=== PATIENT | female | born 1965 | race Caucasian/White ===

== ENCOUNTER → 2017-10-21 10:36 | Outpatient (CLI) | payer OTHER, SELFPAY ==
--- NOTE | 2017-10-21 10:39 | RAD_ITS ---
STUDY: X-RAY - LUMBAR SPINE REASON FOR EXAM: Female, 52 years old. Lower back pain. TECHNIQUE: 2 view(s) of the lumbar spine were obtained. COMPARISON: None FINDINGS: There is fusion from L4 through the sacroiliac joints. The pedicle screws and stabilization rods are intact. There is an exaggerated lumbar lordosis. There is no substantial scoliosis. There is a normal alignment of the vertebrae. Normal vertebral bodies and endplates. Normal disc space heights. There is no evidence of acute fracture or loss of vertebral axial height. The soft tissue structures are unremarkable. RAD/Lumbar Spine 2 or 3 Views IMPRESSION: Fusion of the lower lumbar spine and sacroiliac joints. Electronically Signed: Matty Leahy DO at 21:26 EDT Tel [phone], Service support ,
== END ==
PROVIDERS: Visit Provider Orthopaedic Surgery
DX: M54.5 Low back pain (principal)
CPT/HCPCS: 72100

== ENCOUNTER → 2017-11-27 12:19 | Outpatient (CLI) | payer OTHER, SELFPAY ==
--- NOTE | 2017-11-27 12:22 | MRI_ITS ---
STUDY: MRI LUMBAR SPINE WITH AND WITHOUT CONTRAST REASON FOR EXAM: Female, 52 years old. BACK PAIN, C/O NUMBNESS AND TINGLING BILATERAL LEGS/FEET X 1 YR TECHNIQUE: Standardized fat and water weighted pulse sequences were obtained in the sagittal and axial planes. 8 ml of Gadavist contrast material was administered for the contrast portion of the examination. COMPARISON: X-ray October 21, 2017 FINDINGS: Again seen is posterior fusion of L3, L4 and the sacrum. Susceptibility artifact from hardware limits evaluation. There is stable exaggerated lumbar lordosis. There is a dextroscoliosis of the lumbar spine. Normal conus medullaris that terminates at the T11-12 level. There is stable significant anterolisthesis at L5-S1. There is stable severe loss of disc height at L5-S1. There is stable chronic deformity of the L5 inferior endplate. Bone marrow signal appears normal. T12/L1: Normal. L1/2: Normal. L2/3: There is mild facet and ligamentum flavum hypertrophy. Normal disc. No central canal or neuroforaminal stenosis. L3/4: There is mild facet and ligamentum flavum hypertrophy. Normal disc. No central canal or neuroforaminal stenosis. L4/5: There is mild facet and ligamentum flavum hypertrophy. Normal disc. No central canal stenosis. There is mild bilateral neuroforaminal stenosis. L5/S1: There is no disc bulge or herniation or central canal stenosis. There is moderate to severe right and moderate left neuroforaminal stenosis. Normal visualized sacral ala. There are postoperative changes of the soft tissues of the back. MRI/Spine Lumbar W/WO Contrast IMPRESSION: There is a new dextro scoliosis. L5/S1: There is moderate to severe right and moderate left neuroforaminal stenosis. L4/5: There is mild facet and ligamentum flavum hypertrophy. There is mild bilateral neuroforaminal stenosis. Other stable findings. Electronically Signed: Keerthi Bills MD at 15:03 EDT , Service support ,
[2017-11-27 12:36] VITALS: BP 105/79; PULSE 96; RESP 14; TEMP 36.9; O2SAT 96; BMI 28.3
[2017-11-27] MEDS: Midazolam 2 MG/2 ML Syringe IV ×2 (13:26→13:43)
--- NOTE | 2017-11-27 15:11 | NURSING ---
1320 PT TO MRI VIA WC. 1326 2 MG VERSED IVP GIVEN BY THIS RN. PT PLACED ON SP02 MONITOR. AT BEDSIDE. 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 1343 PT AMBULATED TO MRI TABLE. VERY ANXIOUS AND TACHYPNEIC, RESP 24. PT MEDICATED WITH ANOTHER 2 MG VERSED IVP. STAFF CONTINUES TO PROVIDE EMOTIONAL SUPPORT. 1406 PT'S BROUGHT INTO MRI ROOM TO STAND WITH PT DURING SCAN. 94% RA. 1415 100% RA 1433 CONTRAST GIVEN BY KRYSTAL MONTANO. EMOTIONAL SUPPORT PROVIDED. DENIES NEEDS. PT TOLERATING BUT TEARFUL. 1442 PT AMBULATED TO DRESSING ROOM. REFUSED WC LEAVING. D/C WITH .
== END ==
PROVIDERS: Visit Provider Orthopaedic Surgery
DX: M54.16 Radiculopathy, lumbar region (principal)
CPT/HCPCS: 72158; A9585; A4216

== ENCOUNTER 2018-02-12 15:00 | Outpatient (RCR) | payer OTHER, SELFPAY ==
--- NOTE | 2018-02-19 09:50 | HP.FCE ---
HP OT Functional Capacity Eval - Task Lift Floor (Occasional 1-33% of Day): 12lb Floor (Frequent 34-66% of Day): 6lb Negligible Floor (Constant 67-100% of Day): Negligible Floor PDL: Sedentary Knee (Occasional 1-33% of Day): 12lb Knee (Frequent 34-66% of Day): 6lb Negligible Knee (Constant 67-100% of Day): Negligible Knee PDL: Sedentary Waist (Occasional 1-33% of Day): 12lb Waist (Frequent 34-66% of Day): 6lb Negligible Waist (Constant 67-100% of Day): Negligible Waist PDL: Sedentary Shoulder (Occasional 1-33% of Day): 12lb Shoulder (Frequent 34-66% of Day): 6lb Negligible Shoulder (Constant 67-100% of Day): Negligible Shoulder PDL: Sedentary Overhead (Occasional 1-33% of Day): 12lb Overhead (Frequent 34-66% of Day): 6lb Negligible Overhead (Constant 67-100% of Day): Negligible Overhead PDL: Sedentary - Work Activity/Posture Bending: No Ablility (0% of day) Squatting: Occasional Ability (1-33% of day) Kneeling: Occasional Ability (1-33% of day) Comments: Unable to lead a kneel with L leg Reaching out: Frequent Ability (34-66% of day) Reaching up: Frequent Ability (34-66% of day) Sitting: Frequent Ability (34-66% of day) Walking: Occasional Ability (1-33% of day) Standing: Occasional Ability (1-33% of day) - Reference Duration Sedentary Sedentary Light Light Light Medium Medium Medium Heavy Very Heavy Heavy Occasional (0-33% of day) Frequent (34-66% of day) Constant (67-100% of day) 10 # Negligible Negligible 15 # 8 # Negligible 20 # 10# Negli. 35 # 18 # 7 # 50 # 25 # 10 # 75 # 100 # >100 # 38 # 50 # >50 # 15 # 20 # >20 # - Patient Information Height: 5 ft 3 in Weight:: 72.575 kg Hand Dominance: Right Handed - Medical History Medical History Including Restrictions: Pt reports; tubal ligation, complete hysterectomy, L ear sx, L breast sx, 3 sx to remove colon and rectum, bunion sx L foot, cyst removed large toe R foot, lumbar back sx, urologist for incontinence. - Diagnoses Diagnoses: Pt reports; tubal ligation, complete hysterectomy, L ear sx, L breast sx, 3 sx to remove colon and rectum, bunion sx L foot, cyst removed large toe R foot, lumbar back sx, urologist for incontinence. - Symptoms Symptoms: Pt states lower back pain feels like its going to explode, increased back pain hard to sleep at night, pain mngmt 2 injections into back, pt feels back pain in worse now from injections. 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 - ADLS ADLS: Pt resides in 2 story house, 5 steps to enter 1 handrail. Lives with spouse. AMB no device, pt states has lost balance occassionally. Independent with basic self care tasks. Independent with IADLs. Bedroom is on 2nd floor, laundry main level. 16 steps to 2nd floor with no handrail. Pt drives. Grocery shops and can carry smaller items, can't carry cases of water or heavy objects, has assist with the heavy objects, pushes cart in grocery store. - Physical Examination ROM: BUE WFL. BLE WFL Strength: BUE 4-/5. R LE 3+/5. L LE 3+/5 Right Superintendent Measurement Strength Average: 53.33 Left Superintendent Measurement Strength Average: 38.33 Right Lateral Pinch Average: 4.66 Left Lateral Pinch Average: 10.66 Right Tripod Pinch Average: 6.00 Left Tripod Pinch Average: 10.00 Sensation: Numbness pelvic area, burning of R toes with will go up leg if touched. Fine Motor: Pt reports if cutting a lot of food with utensils hands will cramp up but otherwise no difficulty with fine motor skills such as writing or manipulation of fasteners. Balance: Pt reports has had a fall getting out of tub, loses balance frequently while walking but no real falls other than getting out of the tub. - Non Material Handling Activities Bending: Pt stated unable to complete bending down to floor. Unable to complete task. Squatting: Pt completed 10 squats slow pace using R hand supported on desk, 6 rapid squats, unable to complete 10 secondary to pain and stinging feeling in R foot. Kneeling: Pt able to complete 10 slow kneels leading with R leg only, unable to lead kneels and complete kneeling position with L leg in front using bilateral arm support on desk and chair for all kneels. Reaching out/up: Pt able to reach out and up 10 times without loss of balance, pt able to complete reaching out and up 10 times each rapid pace with no loss of balance. Walking: Pt able to complete 15 minute walk test without rest break needed. Standing: Pt able to tolerate standing between some physical activities 3 to 5 minutes. Did not have to sit during walk test. Pt able to stand after completing stairs and walk back to therapist desk. Sitting: Pt sat for beginning of evaluation for 20 minutes without having to get up and move around. Climbing Stairs: Pt able to climb flight of 10 steps up and down using 1 handrail with R hand reciprocal movement of bilateral legs. - Dynamic Occasional Lifting Capacity Floor Lift: 12lb max Knee Lift: 12lb max Waist Lift: 12lb max Shoulder Lift: 12lb max Overhead Lift: 12lb max Carryinlb max
== END 2018-02-12 19:00 | disposition home or self-care (01) ==
LOC: OT 15:00
PROVIDERS: Visit Provider Orthopaedic Surgery
DX: M54.16 Radiculopathy, lumbar region (principal)
CPT/HCPCS: 97165; 97167

== ENCOUNTER → 2018-08-11 12:47 | Outpatient (CLI) | payer OTHER, SELFPAY ==
--- NOTE | 2018-08-11 12:49 | RAD_ITS ---
HISTORY: POST OP EXAM/TECHNIQUE: XR Spine Lumbar 2 or 3 Views: COMPARISON: 10/21/17 radiographs. FINDINGS: # of images incl. paperwork: 2 Unchanged lower lumbar and SI joint fusion with intact bilateral pedicle screws and spinal rods. No osseous or hardware fracture is evident. Underlying degenerative changes similar to previous. RAD/Lumbar Spine 2 or 3 Views IMPRESSION: Chronic postoperative changes. Intact hardware. No significant change. at 0344 Reported and signed by: Juan Jose Kemp MD Electronically Signed: Juan Jose Kemp, at 22:43 EST Tel , Service support ,
== END ==
PROVIDERS: Referring Provider Orthopaedic Surgery; Visit Provider Orthopaedic Surgery
DX: Z98.1 Arthrodesis status (principal)
CPT/HCPCS: 72100

== ENCOUNTER → 2019-07-27 | Outpatient (CLI) | payer BC, SELFPAY ==
--- NOTE | 2019-07-27 12:35 | RAD_ITS ---
STUDY: X-RAY - LUMBAR SPINE REASON FOR EXAM: Female, 54 years old. Low back pain. TECHNIQUE: 2 view(s) of the lumbar spine were obtained. COMPARISON: 08/11/2018 FINDINGS: Unchanged lower lumbar and SI joint fusion with intact bilateral pedicle screws and spinal rods. No osseous or hardware fracture is evident. Underlying degenerative changes similar to previous. RAD/Lumbar Spine 2 or 3 Views IMPRESSION: Chronic postoperative changes. Intact hardware. No significant change. Electronically Signed: Juan Jose Kemp, at 6:50 EST Tel , Service support ,
== END | disposition home or self-care (01) ==
LOC: HPRAD 12:35
PROVIDERS: Referring Provider Orthopaedic Surgery; Visit Provider Orthopaedic Surgery
DX: M54.5 Low back pain (principal)
CPT/HCPCS: 72100